=== PATIENT | female | born 1975 | race Hispanic/Latino ===

== ENCOUNTER 2018-05-04 16:04 | Emergency (ER) | payer SELFPAY ==
[2018-05-04 16:23] VITALS: BP 133/85; PULSE 81; RESP 17; TEMP 98.3; O2SAT 100
--- NOTE | 2018-05-04 16:46 | ED PDOC ---
Arrival/HPI - General Chief Complaint: Abdominal Pain Time Seen by Provider: 05/04/18 16:05 Historian: Patient - History of Present Illness Narrative History of Present Illness (Text): 05/04/18 16:41 43yo female with pmhx of kidney stone who present with complaint of left sided flank pain with associated nausea 2hrs [employer]. States she had lithotripsy 2years ago and ?surgery 3months ago for the kidney stone at [facility]. Denies vomiting, urinary symptoms, hematuria, fever, chills, any other complaint. Past Medical History - Provider Review Nursing Documentation Reviewed: Yes - Psychiatric Hx Psychophysiologic Disorder: Yes Hx Anxiety: Yes Hx Depression: Yes Hx Substance Use: No - Surgical History Hx Appendectomy: Yes Hx Cholecystectomy: Yes Hx Hysterectomy: Yes Family/Social History - Physician Review Nursing Documentation Reviewed: Yes Family/Social History: Unknown Family HX Smoking Status: Never Smoked Hx Alcohol Use: No Hx Substance Use: No Allergies/Home Meds Allergies/Adverse Reactions: Allergies NSAIDS (Non-Steroidal Anti-Inflamma Allergy (Verified 05/04/18 16:19) RASH Penicillins Allergy (Verified 05/04/18 16:19) SWELLING Sulfa (Sulfonamide Antibiotics) Allergy (Verified 05/04/18 16:19) RASH Home Medications: Home Meds Medication Instructions Recorded Confirmed Venlafaxine [Effexor XR] 150 mg PO DAILY 05/04/18 05/04/18 Review of Systems - Physician Review All systems were reviewed & negative as marked: Yes - Review of Systems Constitutional: Normal Eyes: Normal ENT: Normal Respiratory: Normal Cardiovascular: Normal Gastrointestinal: Abdominal Pain, Nausea. absent: Constipation, Diarrhea, Vomiting, Hematochezia, Hematemesis Genitourinary Female: Normal Musculoskeletal: Normal Skin: Normal Neurological: Normal Endocrine: Normal Hemo/Lymphatic: Normal Psychiatric: Normal Physical Exam Vital Signs Reviewed: Yes Vital Signs Temp Pulse Resp BP Pulse Ox 05/04/18 16:19 98.3 F 81 17 133/85 100 Temperature: Afebrile Blood Pressure: Normal Pulse: Regular Respiratory Rate: Normal Appearance: Positive for: Well-Appearing, Non-Toxic, Comfortable Pain Distress: None Mental Status: Positive for: Alert and Oriented X 3 - Systems Exam Head: Present: Atraumatic, Normocephalic Pupils: Present: PERRL Extroacular Muscles: Present: EOMI Conjunctiva: Present: Normal Mouth: Present: Moist Mucous Membranes Neck: Present: Normal Range of Motion Respiratory/Chest: Present: Clear to Auscultation, Good Air Exchange. No: Respiratory Distress, Accessory Muscle Use Cardiovascular: Present: Regular Rate and Rhythm, Normal S1, S2. No: Murmurs Abdomen: Present: Tenderness (Left flank tenderness), Normal Bowel Sounds, Guarding (Voluntary), Other (soft). No: Distention, Peritoneal Signs, Rebound, McBurney's Point Tender, Rovsing's Sign Present Back: Present: CVA Tenderness (LEft CVAT) Upper Extremity: Present: Normal Inspection. No: Cyanosis, Edema Lower Extremity: Present: Normal Inspection. No: Edema Neurological: Present: GCS=15, CN II-XII Intact, Speech Normal Skin: Present: Warm, Dry, Normal Color. No: Rashes Psychiatric: Present: Alert, Oriented x 3, Normal Insight, Normal Concentration Medical Decision Making ED Course and Treatment: 05/04/18 17:14 PT in ED for left flank pain with nausea, 2hrs [employer]. She had Left flank tenderness and CVAT on exam. She was otherwise in no distress. Hemodynamically stable. Abdominal/Pelvic CT UA Percocet Per RN patient declined Percocet stating it won't help her pain and she eloped from the ED. UA trace blood. No UTI PT eloped from the ED, before abdominal CT can be done - RAD Interpretation Radiology Orders: 05/04/18 16:35 ABDOMEN & PELVIS [ABD & PELVIS W/O PO OR IV CONT] [CT] Stat - Medication Orders Current Medication Orders: Discontinued Medications Oxycodone/Acetaminophen (Percocet 5/325 Mg Tab) 1 tab PO STAT STA Stop: 05/04/18 16:37 Disposition/Present on Arrival - Present on Arrival Any Indicators Present on Arrival: No History of DVT/PE: No History of Uncontrolled Diabetes: No Urinary Catheter: No History of Decub. Ulcer: No History Surgical Site Infection Following: None - Disposition Have Diagnosis and Disposition been Completed?: Yes Diagnosis: Flank pain Disposition: ELOPEMENT - ER ONLY Disposition Time: 17:15 Patient Problems: Current Active Problems Problem Status Onset Flank pain Acute Condition: STABLE Forms: [employer] (Libyan)
[2018-05-04] MEDS: Oxycodone/Acetaminophen 5/325 mg Tab PO STA ×2 (17:10→17:11)
[2018-05-04 17:13] LABS: URINE BILIRUBIN NEGATIVE (NEGATIVE); URINE BLOOD TRACE-INTACT (NEGATIVE); URINE GLUCOSE (UA) NEGATIVE (NEGATIVE); URINE LEUKOCYTE ESTERASE NEGATIVE Leu/uL (NEGATIVE); URINE PROTEIN TRACE mg/dL (<30 mg/dL); URINE UROBILINOGEN 0.2 E.U./dL (<1 E.U./dL)
[2018-05-04 17:16] LABS: URINE APPEARANCE CLEAR (CLEAR); URINE COLOR YELLOW (YELLOW)
[2018-05-04 17:43] LABS: URINE BACTERIA MOD /hpf; URINE CALCIUM OXALATE CRYSTALS MOD /hpf; URINE EPITHELIAL CELLS 0 - 2 /hpf (0-5); URINE RBC 0 - 2 /hpf (0-2); URINE WBC 0 - 2 /hpf (0-6)
== END 2018-05-04 17:18 | disposition left against medical advice (07) ==
LOC: ED 16:04
DX: R10.9 Unspecified abdominal pain (principal)